=== PATIENT | female | born 1940 | race Caucasian/White ===

== ENCOUNTER 2017-10-12 07:45 | Inpatient (IN) | payer OTHER ==
[~2017-10-12] VITALS: Ht 162.6 cm; Wt 72.0 kg
[2017-10-12 08:26] LABS: HEMATOCRIT 38.5 % (36.0-46.0); HEMOGLOBIN 13.5 G/DL (11.9-15.5); MCH 34.6 PG (29.0-34.0); MCHC 35.1 G/DL (30.0-36.0); MCV 98.7 FL (83-99); PLATELET COUNT 267 K/uL (156-360); RBC DIS.WIDTH-CV 11.3 % (11.8-14.6); RBC DIS.WIDTH-SD 41.3 % (39-53); WHITE BLOOD COUNT 12.7 K/uL (4.1-10.2)
[2017-10-12 08:33] LABS: ALBUMIN 4.1 g/dL (3.2-4.8); CHLORIDE 93 mEq/L (99-109); SODIUM 124 mEq/L (136-147)
[2017-10-12 08:35] LABS: GLUCOSE 105 mg/dL (70-99)
[2017-10-12 08:36] LABS: TOTAL PROTEIN 8.5 g/dL (6.4-8.3)
[2017-10-12 08:37] LABS: TOTAL BILIRUBIN 0.6 mg/dL (0.0-1.0)
[2017-10-12 08:39] LABS: ALKALINE PHOSPHATASE 91 IU/L (3-129); CREATININE 6.8 mg/dL (0.6-1.3); GFR ESTIMATE (CALCULATED) 6 mL/min/
[2017-10-12 08:40] LABS: POTASSIUM 6.2 mEq/L (3.7-5.4); UREA NITROGEN (BUN) 81 mg/dL (9-23)
[2017-10-12 08:41] LABS: AST (GOT) 30 IU/L (2-34)
[2017-10-12 08:43] LABS: ALT (GPT) 29 IU/L (3-49)
[2017-10-12 11:06] LABS: APPEARANCE SL.HAZY ((CLEAR)); BILIRUBIN NEGATIVE; BLOOD SMALL; COLOR YELLOW ((YELLOW)); GLUCOSE (STRIP) NEGATIVE; KETONES NEGATIVE; LEUKOCYTES NEGATIVE; NITRITE NEGATIVE; PROTEIN (STRIP) NEGATIVE; SPECIFIC GRAVITY 1.009 (1.000-1.030); UROBILINOGEN 0.2 MG/DL (0.2-1.0)
[2017-10-12 11:28] LABS: BACTERIA NONE SEEN /HPF; EPITHELIAL CELLS RARE /HPF; HYALINE CASTS 0-5 /LPF; MUCUS TRACE /LPF; RED BLOOD CELLS 0-5 /HPF (0-5); UCUL ADDED? NO; WHITE BLOOD CELLS 0-5 /HPF (0-5)
[2017-10-12 13:18] LABS: ALBUMIN 3.7 g/dL (3.2-4.8)
[2017-10-12 13:19] LABS: CHLORIDE 98 mEq/L (99-109); POTASSIUM 5.5 mEq/L (3.7-5.4); SODIUM 127 mEq/L (136-147)
[2017-10-12 13:21] LABS: GLUCOSE 95 mg/dL (70-99); TOTAL PROTEIN 7.4 g/dL (6.4-8.3)
[2017-10-12 13:23] LABS: TOTAL BILIRUBIN 0.6 mg/dL (0.0-1.0)
[2017-10-12 13:24] LABS: ALKALINE PHOSPHATASE 78 IU/L (3-129)
[2017-10-12 13:25] LABS: CREATININE 5.5 mg/dL (0.6-1.3); GFR ESTIMATE (CALCULATED) 8 mL/min/
[2017-10-12 13:26] LABS: AST (GOT) 26 IU/L (2-34); UREA NITROGEN (BUN) 75 mg/dL (9-23)
[2017-10-12 13:28] LABS: ALT (GPT) 25 IU/L (3-49)
[2017-10-12] MEDS ORDERED: PRAVACHOL10 MG PO (14:05)
[2017-10-12] MEDS ORDERED: LOPRESSOR100 M1 PO (14:05)
[2017-10-12] MEDS ORDERED: ULORIC40 MG PO (14:05)
[2017-10-12] MEDS ORDERED: TYLENOL ARTHRI650 MG PO (14:06)
[2017-10-12] MEDS ORDERED: ALEVE220 M2 PO (14:06)
[2017-10-12] MEDS ORDERED: ALDACTONE50 MG PO (14:07)
[2017-10-12] MEDS ORDERED: CRESTOR20 MG PO (14:08)
[2017-10-12] MEDS ORDERED: SYNTHROID125 MCG PO (14:09)
[2017-10-12] MEDS ORDERED: PRILOSEC20 MG PO (14:10)
[2017-10-12] MEDS ORDERED: CATAPRES0.2 MG PO (14:10)
[2017-10-12] MEDS ORDERED: ATACAND32 MG PO (14:10)
[2017-10-12] MEDS ORDERED: ASPIRIN325 MG PO (14:11)
[2017-10-12 15:03] VITALS: BP 137/61
[2017-10-12 16:34] LABS: C DIFF TOXIN NEGATIVE (NEGATIVE)
[2017-10-12 20:05] VITALS: BP 120/62
[2017-10-12 23:50] VITALS: BP 127/58
[2017-10-13 04:15] VITALS: BP 148/73
[2017-10-13 06:07] LABS: HEMATOCRIT 33.5 % (36.0-46.0); MCH 34.2 PG (29.0-34.0); MCV 100.6 FL (83-99); PLATELET COUNT 196 K/uL (156-360); RBC DIS.WIDTH-CV 11.4 % (11.8-14.6); RBC DIS.WIDTH-SD 41.8 % (39-53); RED BLOOD COUNT 3.33 M/uL (3.80-5.20); WHITE BLOOD COUNT 7.7 K/uL (4.1-10.2)
[2017-10-13 06:08] LABS: HEMOGLOBIN 11.4 G/DL (11.9-15.5)
[2017-10-13 06:21] LABS: CHLORIDE 107 MEQ/L (99-109); GLUCOSE 90 mg/dL (70-99); POTASSIUM 4.6 MEQ/L (3.7-5.4); UREA NITROGEN (BUN) 55 mg/dL (9-23)
[2017-10-13 06:23] LABS: GFR ESTIMATE (CALCULATED) 16 mL/min/; SODIUM 134 MEQ/L (136-147)
[2017-10-13 08:05] VITALS: BP 179/68
[2017-10-13 11:24] VITALS: BP 134/67
[2017-10-13 15:45] VITALS: BP 136/66
[2017-10-13 20:21] VITALS: BP 142/66
[2017-10-13 23:50] VITALS: BP 143/64
[2017-10-14 03:12] VITALS: BP 133/65
[2017-10-14 05:48] LABS: BASOPHIL (%) 0.5 % (0-1); EOSINOPHIL (%) 4.5 % (0-5); EOSINOPHIL COUNT 0.4 K/uL (0-0.3); HEMATOCRIT 32.2 % (36.0-46.0); HEMOGLOBIN 10.8 G/DL (11.9-15.5); IMMATURE GRANULOCYTE (%) 0.6 % (0.0-0.7); LYMPHOCYTE (%) 30.5 % (15-42); LYMPHOCYTE COUNT 2.4 K/uL (1.0-2.8); MCH 34.6 PG (29.0-34.0); MCHC 33.5 G/DL (30.0-36.0); MCV 103.2 FL (83-99); MONOCYTE (%) 12.1 % (3-12); MONOCYTE COUNT 0.9 K/uL (0-0.8); NEUTROPHIL (%) 51.8 % (45-76); PLATELET COUNT 178 K/uL (156-360); RBC DIS.WIDTH-CV 11.4 % (11.8-14.6); RBC DIS.WIDTH-SD 43.1 % (39-53); RED BLOOD COUNT 3.12 M/uL (3.80-5.20); WHITE BLOOD COUNT 7.7 K/uL (4.1-10.2)
[2017-10-14 07:43] VITALS: BP 139/65
[2017-10-14 08:26] LABS: CHLORIDE 113 MEQ/L (99-109); CREATININE 1.7 MG/DL (0.6-1.3); GFR ESTIMATE (CALCULATED) 31 mL/min/; GLUCOSE 96 mg/dL (70-99); MAGNESIUM 1.4 mg/dl (1.3-2.7); POTASSIUM 5.3 MEQ/L (3.7-5.4); SODIUM 137 MEQ/L (136-147); THYROTROPIN (TSH) 6.1 MIU/L (0.4-5.5); UREA NITROGEN (BUN) 32 mg/dL (9-23)
[2017-10-14 11:35] VITALS: BP 113/51
== END 2017-10-14 16:04 | disposition home or self-care (01) | DRG 683 ==
LOC: EME 07:45 → 4SOUTH 12:45 → EDOF 12:45 → ENRESERV 12:49 → 4SOUTH 14:49
PROVIDERS: Emergency Medicine; Internal Medicine; Internal Medicine Nephrology
DX: N17.9 Acute kidney failure, unspecified (principal); E87.1 Hypo-osmolality and hyponatremia; N14.1 Nephropathy induced by other drugs, medicaments and biological substances; E87.2 Acidosis; E87.8 Other disorders of electrolyte and fluid balance, not elsewhere classified; E86.0 Dehydration; E87.5 Hyperkalemia; E86.1 Hypovolemia; I10 Essential (primary) hypertension; E78.5 Hyperlipidemia, unspecified; D72.829 Elevated white blood cell count, unspecified; E03.9 Hypothyroidism, unspecified; K57.30 Diverticulosis of large intestine without perforation or abscess without bleeding; K21.9 Gastro-esophageal reflux disease without esophagitis; F10.21 Alcohol dependence, in remission; M10.9 Gout, unspecified
CPT/HCPCS: 74176; 76770; 80048; 80053; 81003; 82140; 83735; 84443; 85025; 85027; 87040; 87493; 87506; 87641; 93005; 99281; 99285; J1644; J7030; S0028